=== PATIENT | male | born 1990 | race African-American/Black ===

== ENCOUNTER 2018-12-29 16:36 | Emergency (ER) | payer MEDICAID ==
[~2018-12-29] VITALS: Ht 185.4 cm; Wt 81.6 kg
[2018-12-29 17:07] LABS: BILIRUBIN 1+ (NEGATIVE); BLOOD NEGATIVE (NEGATIVE); CLARITY CLEAR (CLEAR); COLOR YELLOW (YELLOW); GLUCOSE NEGATIVE (NEGATIVE); KETONE NEGATIVE (NEGATIVE); LEUKO ESTERASE NEGATIVE (NEGATIVE); NITRITE NEGATIVE (NEGATIVE); SPECIFIC GRAVITY >= 1.030 (1.005-1.030)
[2018-12-29 17:18] LABS: BACTERIA TRACE; EPITHELIAL CELLS 41-50; MUCOUS 2+; WBC 51-100 wbc/hpf (0-5)
[2018-12-29] MEDS ORDERED: NORCO 5-325 TA1 EACH PO (18:13)
[2018-12-31 08:07] LABS: GONOCOCCUS BY NAA Negative (Negative)
== END 2018-12-29 18:28 | disposition home or self-care (01) ==
LOC: ED 16:36
PROVIDERS: Nurse Practitioner Family
DX: S62.301A Unspecified fracture of second metacarpal bone, left hand, initial encounter for closed fracture (principal); W22.01XA Walked into wall, initial encounter; Y93.89 Activity, other specified; Y92.89 Other specified places as the place of occurrence of the external cause; Y99.8 Other external cause status